=== PATIENT | female | born 1945 | race African-American/Black ===

== ENCOUNTER 2016-10-30 10:15 | Inpatient (IN) | payer OTHER ==
--- NOTE | 2016-10-30 10:57 | PDOC ---
History of Present Illness - General History Source: Patient Exam Limitations: No Limitations - History of Present Illness Initial Comments: 10/30/16 11:22 The patient is a 71 year old female, with a significant past medical history of HTN, who presents to the emergency department with SOB and chest tightness for 2 -3 days. She ranks her chest tightness a 2/10 in pain intensity. She denies experiencing these often or having these symptoms in the past. She notes the past day her symptoms have been getting worse with the development of a productive cough (bringing up yellow sputum) and often waking from sleep secondary to SOB. She notes her SOB is often made worse with any exertion or ambulation. She denies any change in her eating habits. She denies recent fever , chills, headache and dizziness. She denies recent nausea, vomit, diarrhea and constipation. Allergies: NKDA Social history: Current Smoker (1 pack a day for about 40 years). Denies drug and EtOH use. PCP: Dr. Valente <Jamaal Lane - Last Filed: 10/30/16 11:26> - General History Source: Patient Exam Limitations: No Limitations <Lashonda Lambert - Last Filed: 10/31/16 16:26> - General Chief Complaint: Shortness of Breath Stated Complaint: CHEST PAIN,TROUBLE BREATHING Time Seen by Provider: 10/30/16 10:55 Past History <Jamaal Lane - Last Filed: 10/30/16 11:26> - Past Medical History HTN: Yes - Psycho/Social/Smoking Cessation Hx Anxiety: No Suicidal Ideation: No Smoking History: Current every day smoker Have you smoked in the past 12 months: Yes Number of Cigarettes Smoked Daily: 10 Information on smoking cessation initiated: Yes 'Breaking Loose' booklet given: 10/30/16 Hx Alcohol Use: No Drug/Substance Use Hx: No Substance Use Type: None <Lashonda Lambert - Last Filed: 10/31/16 16:26> - Past Medical History Allergies/Adverse Reactions: Allergies Allergy/AdvReac Type Severity Reaction Status Date / Time No Known Allergies Allergy Verified 10/30/16 12:26 Home Medications: Ambulatory Orders NK [No Known Home Medication] 10/30/16 Review of Systems - Review of Systems Able to Perform ROS?: Yes Comments:: 10/30/16 11:02 GENERAL/CONSTITUTIONAL: No: fever, chills, weakness, loss of appetite. HEAD, EYES, EARS, NOSE AND THROAT: No: change in vision, ear pain, discharge, sore throat, throat swelling. CARDIOVASCULAR: Yes: chest pain, No: lightheadedness, palpitations, syncope RESPIRATORY: Yes: SOB and cough No: hemoptysis, stridor. GASTROINTESTINAL: No: nausea, vomiting, diarrhea, abdominal cramping, rectal bleeding, constipation. GENITOURINARY: No: dysuria, hematuria, frequency, urgency, flank pain. MUSCULOSKELETAL: No: back pain, neck pain, joint pain, muscle swelling or pain SKIN : No: lesions, pallor, rash or easy bruising. NEUROLOGIC: No: headache, vertigo, paresthesias, weakness ENDOCRINE: No: unexplained weight gain or loss HEMATOLOGIC/LYMPHATIC: No: anemia, easy bleeding, swelling nodes. <Jamaal Lane - Last Filed: 10/30/16 11:26> *Physical Exam - Vital Signs Last Vital Signs Temp Pulse Resp BP Pulse Ox 98.0 F 96 H 18 157/102 100 10/30/16 10:21 10/30/16 10:21 10/30/16 10:21 10/30/16 10:21 10/30/16 10:21 - Physical Exam Comments: 10/30/16 11:26 GENERAL: The patient is in no acute distress. Speaking in 5 word sentences. HEAD: Normal with no signs of trauma. EYES: PERRLA, EOMI, sclera anicteric, conjunctiva clear. ENT: Ears normal, nares patent, oropharynx clear without exudates. Moist mucous membranes. NECK: Normal range of motion, supple without lymphadenopathy, JVD, or masses. LUNGS: Inspiratory and expiratory wheezing in all lung [place]. No wheezes, and no crackles. HEART: Regular rate and rhythm, normal S1 and S2 without murmur, rub or gallop. ABDOMEN: Soft, nontender, normoactive bowel sounds. No guarding, no rebound. No masses palpable. EXTREMITIES: Normal range of motion, no edema. No clubbing or cyanosis. No erythema, or tenderness. NEUROLOGICAL: Cranial nerves II through XII grossly intact. Normal speech. No focal neurological deficits. MUSCULOSKELETAL: Back non-tender to palpation, no CVA tenderness SKIN: Warm, Dry, normal turgor, no rashes or lesions noted. <Jamaal Lane - Last Filed: 10/30/16 11:26> - Vital Signs Last Vital Signs Temp Pulse Resp BP Pulse Ox 98.0 F 96 H 18 157/102 100 10/30/16 10:21 10/30/16 10:21 10/30/16 10:21 10/30/16 10:21 10/30/16 10:21 <Lashonda Lambert - Last Filed: 10/31/16 16:26> Heart Score/ECG Review #1 ECG reviewed & interpreted by me at: 11:58 10/30/16 11:58 Twelve-lead EKG was performed and reviewed by me. There is normal sinus rhythm with a normal rate of 99 bpm. The axis is normal. The intervals are normal - pr: 140ms, QRS:74ms, QTc:454ms. There are no ST elevations or depressions. T wave flattening <Lashonda Lambert - Last Filed: 10/31/16 16:26> ED Treatment Course - LABORATORY CBC & Chemistry Diagram: 10/31/16 07:00 10/31/16 07:00 <Lashonda Lambert - Last Filed: 10/31/16 16:26> Medical Decision Making - Medical Decision Making 10/30/16 10:57 A portion of this note was documented by scribe services under my direction. I have reviewed the details of the note, within reason, and agree with the documentation with the following case summary and management plan written by me. Nursing documentation reviewed and incorporated into medical decision making 10/30/16 13:42 71 yo F h/o HTN presenting to the ER with a complaint of cough and shortness of breath No fevers or chills that she notes She has exertional dyspnea and shortness of breath at rest Pt uses tobacco - more than 1 ppd for 40 years No recent travel No chest pain On examination: Inspiratory and Expiratory wheezing in all lung [place] No abd tenderness No lower extremity edema Will do labs Will do cxr Given Solumedrol (pt history suggestive of COPD) Given DuoNebs Cxr ? CHF, lytic lesion Case reviewed with Dr. Daugherty Will admit Will add on BNP Will add Azithromycin Clinical impression: cough, ?CHF vs COPD exacerbation, ? lytic lesion Laboratory Tests 10/30/16 10/30/16 10:58 10:58 WBC 8.7 Hgb 12.5 Hct 39.3 Plt Count 226 Neutrophils % 71.8 Lymphocytes % 16.7 BUN 9 Creatinine 0.7 Creatine Kinase 467 H CK-MB (CK-2) 5.748 H Troponin I < 0.02 B-Natriuretic Peptide 595.94 H <Lashonda Lambert - Last Filed: 10/31/16 16:26> *DC/Admit/Observation/Transfer - Attestations Scribe Attestion: 10/30/16 10:59 Documentation prepared by Jamaal Lane, acting as biomedical equipment specialist for Lashonda Lambert MD. <Jamaal Lane - Last Filed: 10/30/16 11:26> - Discharge Dispostion Admit: Yes <Lashonda Lambert - Last Filed: 10/31/16 16:26> Diagnosis at time of Disposition: Cough, COPD exacerbation - Discharge Dispostion Condition at time of disposition: Stable
[2016-10-30] MEDS ORDERED: methylPREDNISolone NA SUCC 125 MG/2 ML VIAL IVPB ONE (11:25)
[2016-10-30] MEDS ORDERED: ALBUTEROL SO4 2.5/IPRATROPIUM 0.5 INH SOL 3 ML VIAL.NEB. NEB ONE ×2 (11:25)
[2016-10-30 12:02] LABS: BASOPHIL 0.9 % (0-2.0); EOSINOPHIL 1.4 % (0-4.5); MCH 28.7 pg (25.7-33.7); MCHC 31.7 g/dl (32.0-36.0); MEAN CELL VOLUME 90.5 fl (80-96); MEAN PLT VOLUME 9.6 fl (7.5-11.1); NEUTROPHILS 71.8 % (42.8-82.8); PLATELET COUNT 226 K/MM3 (134-434); RDW 15.9 % (11.6-15.6); WHITE BLOOD COUNT 8.7 K/mm3 (4.0-10.0)
[2016-10-30 12:15] LABS: INR 1.08 (0.82-1.09); PROTHROMBIN TIME (PATIENT) 11.9 SEC (9.98-11.88)
[2016-10-30 12:22] LABS: ANION GAP 11 (8-16); BILIRUBIN,TOTAL 0.7 mg/dL (0.2-1.0); CALCIUM 9.4 mg/dL (8.5-10.1); CO2 22 mmol/L (21-32); CREATININE 0.7 mg/dL (0.55-1.02); GLUCOSE,RANDOM 93 mg/dL (74-106); MAGNESIUM 1.7 mg/dL (1.8-2.4); SGPT/ALT 30 U/L (12-78); TOT PROT 7.9 g/dl (6.4-8.2)
[2016-10-30 12:25] LABS: ALK PHOS 72 U/L (45-117); TROPONIN I < 0.02 ng/ml (0.00-0.05)
[2016-10-30 12:26] LABS: SGOT/AST 51 U/L (15-37)
[2016-10-30] MEDS ORDERED: AZITHROMYCIN IVPB 500 MG in DEXTROSE 5%-WATER - 250 ML IVPB ONE (13:39)
[2016-10-30] MEDS ORDERED: AZITHROMYCIN IVPB 250 ML IVPB ONE (13:57)
--- NOTE | 2016-10-30 15:48 | EKG ---
Test Reason : Blood Pressure : / mmHG Vent. Rate : 099 BPM Atrial Rate : 099 BPM P-R Int : 140 ms QRS Dur : 074 ms QT Int : 354 ms P-R-T Axes : 000 -13 254 degrees QTc Int : 454 ms POOR DATA QUALITY, INTERPRETATION MAY BE ADVERSELY AFFECTED NORMAL SINUS RHYTHM NONSPECIFIC T WAVE ABNORMALITY ABNORMAL ECG Confirmed by GAYLA JUAREZ MD ([id number]) on 10/30/2016 3:48:03 PM Referred By: Confirmed By:GAYLA JUAREZ MD
[2016-10-30] MEDS ORDERED: FUROSEMIDE 40 MG/4 ML INJECTABLE VIAL IVPB ONE (17:05)
[2016-10-30] MEDS ORDERED: PNEUMOC 13-VAL CONJ-DIP CRM/PF 0.5 ML DISP.SYRIN IM ONE (17:16)
--- NOTE | 2016-10-30 17:27 | HP ---
CHIEF COMPLAINT: SOB and chest tightness for 2 days PCP: Dr. Valente HISTORY OF PRESENT ILLNESS: 71 y/o F w/PMH of HTN, current smoker presented to ER with SOB and chest tightness for 2 days, associated with cough and clear sputum sputum production. Chest tightness rated as a 2/10. Came into ER today because she hasn't been able to sleep from coughing and SOB over last two nights. Cough is worse when laying flat. Requires 2 pillows to sleep. Has had exertional dyspnea from some time now but has gotten worse in last 2 days. She is unable to walk 10-15 ft now w/o getting SOB. SOB is relieved with rest. Pt does not follow with doctors. Last time she saw a physician was Dr. Valente approximately 4-5 years ago. Saw account installer before then and had echo done but does not know the results or name of doctor. She was started on hyzaar at the time but did not take the meds. Denies N/V/F/C, abd pain. Pt also c/o decreased feeling in legs, drinks lots of soda and water, has right hand cramping and leg cramping which takes 2 tablets of potassium daily (which she feels helps). Denies any sick contacts. ER course was notable for: (1) solumedrol, ekg, cxr, azithromycin (2) (3) Recent Travel: denies PAST MEDICAL HISTORY: htn PAST SURGICAL HISTORY: back surgery 2010 Social History: Smokin ppd for 40 years Alcohol: denies Drugs: denies Family History: Father became cachetic and passed (does not know cause), Mother -[place]. Aunt, cousins diabetes Allergies No Known Allergies Allergy (Verified 10/30/16 12:26) HOME MEDICATIONS: Home Medications Medication Instructions Recorded NK [No Known Home Medication] 10/30/16 REVIEW OF SYSTEMS CONSTITUTIONAL: Absent: fever, chills, diaphoresis, generalized weakness, malaise, loss of appetite, weight change HEENT: Absent: rhinorrhea, nasal congestion, throat pain, throat swelling, difficulty swallowing, mouth swelling, ear pain, eye pain, visual changes CARDIOVASCULAR: Absent: chest pain, syncope, palpitations, irregular heart rate, lightheadedness , peripheral edema RESPIRATORY: SOB, cough, dyspnea with exertion Absent: orthopnea, wheezing, stridor, hemoptysis GASTROINTESTINAL: Absent: abdominal pain, abdominal distension, nausea, vomiting, diarrhea, constipation, melena, hematochezia GENITOURINARY: Absent: dysuria, frequency, urgency, hesitancy, hematuria, flank pain, genital pain MUSCULOSKELETAL: Absent: myalgia, arthralgia, joint swelling, back pain, neck pain SKIN: Absent: rash, itching, pallor HEMATOLOGIC/IMMUNOLOGIC: Absent: easy bleeding, easy bruising, lymphadenopathy, frequent infections ENDOCRINE: Absent: unexplained weight gain, unexplained weight loss, heat intolerance, cold intolerance NEUROLOGIC: Absent: headache, focal weakness or paresthesias, dizziness, unsteady gait, seizure, mental status changes, bladder or bowel incontinence PSYCHIATRIC: Absent: anxiety, depression, suicidal or homicidal ideation, hallucinations. PHYSICAL EXAMINATION Vital Signs Temperature 98.0 F 10/30/16 10:21 Pulse Rate 88 10/30/16 16:59 Respiratory Rate 20 10/30/16 16:59 Blood Pressure 157/90 10/30/16 16:59 O2 Sat by Pulse Oximetry (%) 96 10/30/16 16:59 GENERAL: Awake, alert, and fully oriented, in no acute distress. HEAD: Normal with no signs of trauma. EYES: Pupils equal, round and reactive to light, extraocular movements intact, sclera anicteric, conjunctiva clear. No lid lag. EARS, NOSE, THROAT: Ears normal, nares patent, oropharynx clear without exudates. Moist mucous membranes. Mallampati score 4. NECK: Normal range of motion, supple without lymphadenopathy, JVD, or masses. LUNGS: B/L wheezing. No crackles. HEART: Regular rate and rhythm, normal S1 and S2 without murmur, rub or gallop. ABDOMEN: Soft, nontender, obese, not distended, normoactive bowel sounds, no guarding, no rebound, no masses. No hepatomegaly or splenomegaly. LOWER EXTREMITIES: 2+ pulses, warm, well-perfused. Chronic venous stasis changes on B/L LE. Trace B/L LE edema. NEUROLOGICAL: Normal speech. Normal gait. PSYCHIATRIC: Cooperative. Good eye contact. Appropriate mood and affect. SKIN: Warm, dry, normal turgor, no rashes or lesions noted. CBCD WBC 8.7 K/mm3 (4.0-10.0) 10/30/16 10:58 RBC 4.34 M/mm3 (3.60-5.2) 10/30/16 10:58 Hgb 12.5 GM/dL (10.7-15.3) 10/30/16 10:58 Hct 39.3 % (32.4-45.2) 10/30/16 10:58 MCV 90.5 fl (80-96) 10/30/16 10:58 MCHC 31.7 g/dl (32.0-36.0) L 10/30/16 10:58 RDW 15.9 % (11.6-15.6) H 10/30/16 10:58 Plt Count 226 K/MM3 (134-434) 10/30/16 10:58 MPV 9.6 fl (7.5-11.1) 10/30/16 10:58 CMP Sodium 136 mmol/L (136-145) 10/30/16 10:58 Potassium 5.5 mmol/L (3.5-5.1) H 10/30/16 10:58 Chloride 103 mmol/L (98-107) 10/30/16 10:58 Carbon Dioxide 22 mmol/L (21-32) 10/30/16 10:58 Anion Gap 11 (8-16) 10/30/16 10:58 BUN 9 mg/dL (7-18) 10/30/16 10:58 Creatinine 0.7 mg/dL (0.55-1.02) 10/30/16 10:58 Creat Clearance w eGFR > 60 (>60) 10/30/16 10:58 Random Glucose 93 mg/dL (74-106) 10/30/16 10:58 Calcium 9.4 mg/dL (8.5-10.1) 10/30/16 10:58 Total Bilirubin 0.7 mg/dL (0.2-1.0) 10/30/16 10:58 AST 51 U/L (15-37) H 10/30/16 10:58 ALT 30 U/L (12-78) 10/30/16 10:58 Alkaline Phosphatase 72 U/L (45-117) 10/30/16 10:58 Total Protein 7.9 g/dl (6.4-8.2) 10/30/16 10:58 Albumin 4.0 g/dl (3.4-5.0) 10/30/16 10:58 CARDIAC ENZYMES Creatine Kinase 467 IU/L (26-192) H 10/30/16 10:58 Troponin I < 0.02 ng/ml (0.00-0.05) 10/30/16 10:58 Laboratory Tests 10/30/16 10:58 B-Natriuretic Peptide 595.94 H Imaging CXR 10/30/16: mild congestive changes. lytic lesion in the left proximal humerus with thinning of the adjacent medial cortex. ASSESSMENT/PLAN: 71 y/o F with PMH of HTN and current smoker presented to ER with SOB and chest tightness for 2 days. Admitted for SOB secondary to CHF vs COPD exacerbation vs ACS. -SOB secondary to CHF vs COPD exacerbation vs ACS -CHF - BNP: 595, trace LE edema, CXR: mild congestive changes, b/l angles blunted, possible underlying CHF not acute most likely -one dose iv lasix 40 mg ordered; cxr in am; echo -COPD - current smoker, at risk for copd -solumedrol 40 mg iv q8h, azithromycin 250mg iv qd (day), duonebs qidr -ACS - CK and CKMB elevated, trops negative - low suspicion for ACS currently -f/u Echo, TSH, Trend trops, lipid panel, A1C -f/u Bcx -Transaminitis -possibly secondary to CHF -monitor LFTs -HTN -will start back on losartan/hctz at lowest dose (50/12.5) daily -monitor BP -Lytic lesion on L humerus -Seen on images in past -will need to f/u as outpatient -R hand pain/cramping -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 -Hypomagnesemia -MgOx 800 mg bid -Monitor lytes, Mg -Diet: Sodium controlled, diabetic diet -DVT ppx -Heparin sq tid -Dispo: Monitor on floors. Problem List - Problem (1) COPD exacerbation Code(s): J44.1 - CHRONIC OBSTRUCTIVE PULMONARY DISEASE W (ACUTE) EXACERBATION (2) Cough Code(s): R05 - COUGH (3) CHF (congestive heart failure) Code(s): I50.9 - HEART FAILURE, UNSPECIFIED (4) ACS (acute coronary syndrome) Code(s): I24.9 - ACUTE ISCHEMIC HEART DISEASE, UNSPECIFIED (5) Transaminitis Code(s): R74.0 - NONSPEC ELEV OF LEVELS OF TRANSAMNS & LACTIC ACID DEHYDRGNSE (6) Hyperkalemia Code(s): E87.5 - HYPERKALEMIA (7) Hypomagnesemia Code(s): E83.42 - HYPOMAGNESEMIA (8) Obesity Code(s): E66.9 - OBESITY, UNSPECIFIED Visit type - Emergency Visit Emergency Visit: Yes ED Registration Date: 10/30/16 Care time: The patient presented to the Emergency Department on the above date and was hospitalized for further evaluation of their emergent condition. - New Patient This patient is new to me today: Yes Date on this admission: 10/30/16 - Critical Care Critical Care patient: No
[2016-10-30 17:35] VITALS: BMI 41.1
[2016-10-30] MEDS: NICOTINE 21 MG/24 HOURS TOPICAL PATCH TD SCH (17:46)
[2016-10-30] MEDS: ALBUTEROL SO4 2.5/IPRATROPIUM 0.5 INH SOL 3 ML VIAL.NEB. NEB SCH (17:46)
[2016-10-30] MEDS: methylPREDNISolone NA SUCC 40 MG/1 ML VIAL IVPB SCH (18:15)
--- NOTE | 2016-10-30 18:27 | PN ---
Teaching Attending Note Name of Resident: Dexter Whipple ATTENDING PHYSICIAN STATEMENT I saw and evaluated the patient. I reviewed the resident's note and discussed the case with the resident. I agree with the resident's findings and plan as documented. SUBJECTIVE: This is a 71-year-old woman with a history of HTN who presented to the ER complaining of chest tightness and shortness of breath with cough for the last 2 days. She has had shortness of breath with exertion for some time and it has been worsening. She denies fever, chills, urinary frequency, nocturia , orthopnea, PND, leg edema. OBJECTIVE: Vital Signs Period Temp Pulse Resp BP Sys/Ortiz Pulse Ox Last 24 Hr 98.0 F-98.6 F 88-108 18-24 157-174/90-102 96-100 HEART: S1 S2, RRR LUNGS: Bilateral wheezes ABDOMEN: Obese, soft, non-tender, normal BS EXTREMITIES: Trace edema ASSESSMENT AND PLAN: This is a 71-year-old woman with a history of HTN who comes to the ER today with worsening shortness of breath. 1. Acute exacerbation of COPD - SoluMedrol, DuoNeb, oxygen 2. Possible acute diastolic heart failure - Lasix IV x1 - Echocardiogram 3. Possible acute coronary syndrome - Serial troponins - Echocardiogram 4. Hypertension - Has not been taking medications (Was supposed to be on Hyzaar) - Restart Hyzaar and monitor BP 5. Lytic lesion of proximal left humerus - Outpatient evaluation
[2016-10-30] MEDS ORDERED: amLODIPine BESYLATE 5 MG TABLET (FP) PO ONE (20:59)
[2016-10-30] MEDS ORDERED: diphenhydrAMINE HCL 25 MG CAPSULE (FP) PO ONE (21:01)
[2016-10-30] MEDS: MAGNESIUM OXIDE 400 MG TABLET (FP) PO SCH (21:43)
[2016-10-31] MEDS: ALBUTEROL SO4 2.5/IPRATROPIUM 0.5 INH SOL 3 ML VIAL.NEB. NEB SCH ×2 (00:09→06:29)
[2016-10-31] MEDS: methylPREDNISolone NA SUCC 40 MG/1 ML VIAL IVPB SCH ×3 (02:13→21:01)
[2016-10-31 08:41] LABS: MCH 28.9 pg (25.7-33.7); MCHC 31.9 g/dl (32.0-36.0); MEAN CELL VOLUME 90.5 fl (80-96); PLATELET COUNT 249 K/MM3 (134-434); RDW 15.7 % (11.6-15.6); WHITE BLOOD COUNT 8.2 K/mm3 (4.0-10.0)
[2016-10-31 09:11] LABS: ALBUMIN 4.1 g/dl (3.4-5.0); ANION GAP 11 (8-16); BILIRUBIN,TOTAL 0.4 mg/dL (0.2-1.0); CALCIUM 9.7 mg/dL (8.5-10.1); CHOLESTEROL 142 mg/dL (50-200); CO2 25 mmol/L (21-32); CREATININE 0.7 mg/dL (0.55-1.02); GLUCOSE,RANDOM 142 mg/dL (74-106); LDL CHOLESTEROL (ONLY SJRH) 53 mg/dL (5-100); MAGNESIUM 2.1 mg/dL (1.8-2.4); PHOSPHOROUS 4.1 mg/dL (2.5-4.9); SGOT/AST 14 U/L (15-37); SGPT/ALT 26 U/L (12-78)
[2016-10-31 09:17] LABS: ALK PHOS 77 U/L (45-117); THYROID STIMULATING HORMONE 0.33 uIU/ml (0.358-3.74); TROPONIN I < 0.02 ng/ml (0.00-0.05)
--- NOTE | 2016-10-31 10:02 | PN ---
Progress Note (short form) - Note Progress Note: c/o productive cough of clear sputum. states her breathing has improved but feels dyspnic on exertion. she states she does not have the ability to walk far due to back pain which is assoc with SOB. but denies CP at that time. she states she has chronic cough which is worse at night but not assoc with laying flat. has intermittent edema limited to the feet and intermittent leg and hand cramps. she states she had cardiac workup in 2010 but does not recall what was done but thinks the results were "fine". she thinks she was told something about her thyroid but was told she didnt have to "worry about it". stopped taking all her medications except potassium supplements awhile ago on her own. has not seen PMD (Dr Valente) in several years. also had difficulty sleeping last night. denies CP, palpitations, skin changes, hair loss, orthopnea, PND, leg edema, rashes, N/V/C/D Current Medications Generic Name Dose Route Start Last Admin Trade Name Christophe PRN Reason Stop Dose Admin Albuterol/Ipratropium 1 amp 10/30/16 18:00 10/31/16 06:29 Duoneb - NEB 1 amp QIDR SORAYA Administration HCTZ/Losartan Potassium 1 tab 10/31/16 10:00 Hyzaar - PO DAILY SORAYA Azithromycin 250 mg/ Dextrose 250 mls @ 250 mls/hr 10/31/16 10:00 IVPB DAILY SORAYA Magnesium Oxide 800 mg 10/30/16 22:00 10/30/16 21:43 Mag-Ox - PO 800 mg BID SORAYA Administration Methylprednisolone Sodium Succinate 40 mg 10/30/16 18:00 10/31/16 02:13 Solu-Medrol - IVPB 40 mg Q8H-IV SORAYA Administration Nicotine 21 mg 10/30/16 17:45 10/30/16 17:46 Nicoderm Patch - TD Not Given DAILY SORAYA Last Vital Signs Temp Pulse Resp BP Pulse Ox 98.3 F 103 H 22 147/104 97 10/31/16 06:00 10/31/16 06:00 10/31/16 06:00 10/31/16 06:00 10/30/16 21:00 General NAD, pressured speech HEENT no thyroid nodules appreciated, CV S1 S2 RRR no murmur/rub/gallop no JVD Lungs mild expiratory wheezing. no rales or crackles. poor inspiratory effort abdomen soft NT/ND obese Extremities no pedal edema CBCD WBC 8.2 K/mm3 (4.0-10.0) 10/31/16 07:00 RBC 4.33 M/mm3 (3.60-5.2) 10/31/16 07:00 Hgb 12.5 GM/dL (10.7-15.3) 10/31/16 07:00 Hct 39.2 % (32.4-45.2) 10/31/16 07:00 MCV 90.5 fl (80-96) 10/31/16 07:00 MCHC 31.9 g/dl (32.0-36.0) L 10/31/16 07:00 RDW 15.7 % (11.6-15.6) H 10/31/16 07:00 Plt Count 249 K/MM3 (134-434) 10/31/16 07:00 MPV 10.0 fl (7.5-11.1) 10/31/16 07:00 CMP Sodium 137 mmol/L (136-145) 10/31/16 07:00 Potassium 4.4 mmol/L (3.5-5.1) 10/31/16 07:00 Chloride 101 mmol/L (98-107) 10/31/16 07:00 Carbon Dioxide 25 mmol/L (21-32) 10/31/16 07:00 Anion Gap 11 (8-16) 10/31/16 07:00 BUN 22 mg/dL (7-18) H D 10/31/16 07:00 Creatinine 0.7 mg/dL (0.55-1.02) 10/31/16 07:00 Creat Clearance w eGFR > 60 (>60) 10/31/16 07:00 Random Glucose 142 mg/dL (74-106) H D 10/31/16 07:00 Calcium 9.7 mg/dL (8.5-10.1) 10/31/16 07:00 Total Bilirubin 0.4 mg/dL (0.2-1.0) D 10/31/16 07:00 AST 14 U/L (15-37) L D 10/31/16 07:00 ALT 26 U/L (12-78) 10/31/16 07:00 Alkaline Phosphatase 77 U/L (45-117) 10/31/16 07:00 Total Protein 8.0 g/dl (6.4-8.2) 10/31/16 07:00 Albumin 4.1 g/dl (3.4-5.0) 10/31/16 07:00 CARDIAC ENZYMES Creatine Kinase 406 IU/L (26-192) H 10/31/16 07:00 Troponin I < 0.02 ng/ml (0.00-0.05) 10/31/16 07:00 A/P 71 yo F with PMH HTN and chronic smoker presented to the ER and was admitted for further evaluation of their emergent condition 1. Acute COPD exacerbation- no formally diangosed but likely with smoking hx. has vascular congestion on CXR and given lasix in the ER. however pt does not clinically appear to be volume overloaded and with normal BNP. will hold lasix at this time. improved on steroids. Will decrease solumedrol to BID dosing. Azithromycin day 2. will switch nebs to prn from standing. 2. low TSH- had low TSH in 2010, also thyroid u/s showed multiple nodules and recommended FNA at that time however was never done. check T3/T4, thyroid u/s. will consider starting methimazole. 3. Hyperkalemia- likely due to supplementation. now resolved 4. Hypomagnesemia- resolved. d/c standing magnesium 5. HTN- not on medications at home. above goal. re-started hyzaar. monitor 6. Morbid obesity- counseled on weight loss and exercise. not interested at bariatric surgery at this time 7. Continuous nicotine dependence- not interested in tobacco cessation at this time. counseled on risks of tobacco. patch offered 8. insomnia- ambien qhs. explained will not be discharged on this medication. verbalized understanding 9. DVT ppx- EAM Visit type - Emergency Visit Emergency Visit: Yes ED Registration Date: 10/30/16 Care time: The patient presented to the Emergency Department on the above date and was hospitalized for further evaluation of their emergent condition. - New Patient This patient is new to me today: Yes Date on this admission: 10/31/16 - Critical Care Critical Care patient: No - Discharge Referral Referred to [facility] Med P.C[facility] No
[2016-10-31] MEDS ORDERED: ZOLPIDEM TARTRATE 5 MG TABLET PO PRN (10:25)
[2016-10-31] MEDS ORDERED: PT OWN MED DRAWER 7, Y5N ONE (10:35)
[2016-10-31] MEDS: AZITHROMYCIN IVPB 250 MG in DEXTROSE 5%-WATER - 250 ML IVPB SCH (10:37)
[2016-10-31] MEDS: LOSARTAN 50MG/HCTZ 12.5MG 1 TAB (FP) PO SCH (10:37)
[2016-10-31] MEDS: NICOTINE 21 MG/24 HOURS TOPICAL PATCH TD SCH (10:37)
[2016-10-31] MEDS: ALBUTEROL SO4 2.5/IPRATROPIUM 0.5 INH SOL 3 ML VIAL.NEB. NEB PRN ×3 (11:22→22:35)
[2016-10-31 11:48] LABS: T3 UPTAKE 30.4 % (30-39); THYROXINE (T4) 8.9 ug/dl (4.8-13.9)
[2016-10-31] MEDS: MAGNESIUM OXIDE 400 MG TABLET (FP) PO SCH (12:22)
[2016-11-01 06:29] VITALS: TEMP 98.5
[2016-11-01] MEDS: ALBUTEROL SO4 2.5/IPRATROPIUM 0.5 INH SOL 3 ML VIAL.NEB. NEB PRN ×2 (06:50→10:30)
[2016-11-01 09:53] VITALS: BP 134/100
[2016-11-01] MEDS ORDERED: AZITHROMYCIN 250 MG TABLET (FP) PO ONE (10:01)
--- NOTE | 2016-11-01 10:26 | DS ---
Addendum entered and electronically signed by Edwige Chery RES 11/04/16 14 :08: Ambulatory Orders Albuterol Sulfate Inhaler - [Ventolin HFA Inhaler -] 1 puff IH DAILY PRN #1 inhaler 11/01/16 Azithromycin 250 mg PO DAILY #2 tablet 11/01/16 Losartan 50Mg/Hctz 12.5MG [Hyzaar -] 1 tab PO DAILY #30 tablet 11/01/16 Methylprednisolone [Medrol Dose Abdelrahman] 4 mg PO ASDIR #21 tablet 11/01/16 Original Note: Physical Exam: SUBJECTIVE: Patient seen and examined. Shortness of breath and cough has improved. Feeling much better. Denies fever, chills, chest pain, sputum production, pain, leg swelling. OBJECTIVE: Vital Signs Period Temp Pulse Resp BP Sys/Ortiz Pulse Ox Last 24 Hr 97.9 F-98.6 F 100-112 14-22 134-160/78-100 90-94 PHYSICAL EXAM GENERAL: The patient is awake, alert, and fully oriented, in no acute distress. HEAD: Normal with no signs of trauma. EYES: PERRL, extraocular movements intact, sclera anicteric, conjunctiva clear. ENT: Ears normal, nares patent, oropharynx clear without exudates, moist mucous membranes. NECK: Trachea midline, full range of motion, supple. LUNGS: Breath sounds equal decreased, bilateral wheezes throughout all lung [place], no crackles, no accessory muscle use. HEART: Regular rate and rhythm, S1, S2 without murmur, rub or gallop. ABDOMEN: Soft, nontender, nondistended, normoactive bowel sounds, no guarding, no rebound, no hepatosplenomegaly, no masses. EXTREMITIES: 2+ pulses, warm, well-perfused, no edema. NEUROLOGICAL: Cranial nerves II through XII grossly intact. Normal speech, gait not observed. PSYCH: Normal mood, normal affect. SKIN: Warm, dry, normal turgor, no rashes or lesions noted. LABS Laboratory Results - last 24 hr 10/31/16 10/31/16 07:00 07:00 Hemoglobin A1c % 5.8 Resin T3 Uptake 30.4 HOSPITAL COURSE: Date of Admission:10/30/16 Date of Discharge: 11/01/16 71 year old female, chronic smoker, presents to the hospital with shortness of breath and chest tightness, admitted for acute exacerbation of COPD. She was managed on short course of antibiotics and IV steroids. Patient condition greatly improved. She was sent home on medrol dose pack, two more days of azithromycin 250mg po and an albuterol inhaler. She was counseled on smoking cessation, for which she has refused. O2 on room air was within normal limits. Patient has been advised to get an echocardiogram as an outpatient due to some initial query of congestive heart failure. She did have some small bilateral crackles on presentation, with some vascularization of vessels on initial chest xray, BNP 600s. We ruled out CHF due to further clinical presentation and patient improvement with current treatment, although we suggest further evaluation. While in hospital, TSH was low 0.33. past records indicate even lower TSH. Past workup included a thyroid ultrasound that showed multiple nodules, fine needle biopsy was recommend. Patient did not get this done. Recommend further evaluation with primary. Minutes to complete discharge: 40 Discharge Summary Reason For Visit: OBSTR CHRONIC BRONCHITIS Current Active Problems COPD exacerbation (Acute) Cough (Acute) Obesity (Chronic) Condition: Improved - Instructions Diet, Activity, Other Instructions: Ms. Velez, you have been treated in the hospital for an acute exacerbation of COPD. We would like you to continue taking two more days of the antibiotic prescribed that you will start tomorrow. We would also like to take a steroid dose pack that you will start tomorrow as well. Smoking cessation would greatly improve your condition as well. We spoke about getting an echocardiogram, to further asses you heart, for which you can do as an outpatient. Also the need for a thyroid ultrasound to follow up with your recent thyroid levels. Please discuss these issues with your primary physician with in one week. If you have any worsening of symptoms, increasing shortness of breath , chest pain, please return to the emergency room. Disposition: HOME - Home Medications Comprehensive Discharge Medication List: Ambulatory Orders NK [No Known Home Medication] 10/30/16 This patient is new to me today: Yes Date on this admission: 11/01/16 Emergency Visit: No Critical Care patient: No - Discharge Referral Referred to [facility] Med P.C.: No
[2016-11-01] MEDS: methylPREDNISolone NA SUCC 40 MG/1 ML VIAL IVPB SCH (10:42)
[2016-11-01] MEDS: LOSARTAN 50MG/HCTZ 12.5MG 1 TAB (FP) PO SCH (10:42)
[2016-11-01] MEDS: NICOTINE 21 MG/24 HOURS TOPICAL PATCH TD SCH (10:42)
[2016-11-01] MEDS: AZITHROMYCIN IVPB 250 MG in DEXTROSE 5%-WATER - 250 ML IVPB SCH (10:45)
--- NOTE | 2016-11-01 11:12 | PN ---
Teaching Attending Note Name of Resident: Edwige Chery ATTENDING PHYSICIAN STATEMENT I saw and evaluated the patient. I reviewed the resident's note and discussed the case with the resident. I agree with the resident's findings and plan as documented. SUBJECTIVE:currently asymptomatic. states cough has significantly improved. requesting to go home. denies CP, SOB,fever, chills, N/V/C/D OBJECTIVE: Last Vital Signs Temp Pulse Resp BP Pulse Ox 98.5 F 100 H 20 134/100 94 L 11/01/16 06:00 11/01/16 09:45 11/01/16 09:45 11/01/16 09:45 10/31/16 21:00 General NAD CV S1 S2 RRR no murmur/rub/gallop Lungs minimal expiratory wheezing, no crackles extremities no pedal edema ASSESSMENT AND PLAN: 11 yo F with PMH HTN and chronic smoker presented to the ER and was admitted for further evaluation of their emergent condition 1. Acute COPD exacerbation-clinically improved. used neb once in past 24 H. will give solumedrol 40mg IV today and then d/c on medrol dose pack to start tomorrow. Azithromycin day 3, will give to complete 5 day course. informed pt she would benefit from echo done as outpatient to assess overall performance. albuterol inhaler prn. 2. low TSH- had low TSH in 2010, unable to obtain thyroid u/s as not done as inpatient. encouraged pt to have done as outpatient, also will need repeat TSH. will hold on starting medications at this time as T3/T4 are normal. (T4 8.9) 3. HTN-improved. started on hyzaar. will continue for now. counseled on low salt diet. will likely require further titration to optimize blood pressure control 4. Morbid obesity- counseled on weight loss and exercise. not interested at bariatric surgery at this time 5. Continuous nicotine dependence- not interested in tobacco cessation at this time. counseled on risks of tobacco. patch offered 6. DVT ppx- EAM 7. d/c home. explained in detail plan and importance of medication and diet compliance. informed her need to follow up with PMD. states she has appointment for 2 days from now. explained to bring in medication changes and need for echo and u/s
[2016-11-01 11:26] VITALS: PULSE 88
== END 2016-11-01 12:28 | disposition home or self-care (01) | DRG 191 ==
LOC: JER 10:15 → JERBED 13:49 → J5S 16:45
PROVIDERS: ADMIT Internal Medicine; ATTEND Internal Medicine
DX: J44.1 Chronic obstructive pulmonary disease with (acute) exacerbation (principal); Z68.41 Body mass index [BMI] 40.0-44.9, adult; F17.210 Nicotine dependence, cigarettes, uncomplicated; E66.01 Morbid (severe) obesity due to excess calories; I10 Essential (primary) hypertension; E87.5 Hyperkalemia; E83.42 Hypomagnesemia; G47.00 Insomnia, unspecified
CPT/HCPCS: 36415; 71010-TC; 80053; 80061; 82550; 82553; 83036; 83721; 83735; 83880; 84100; 84436; 84443; 84479; 84484; 85025; 85027; 85610; 87040; 87077; 90670; 93005; 93010; 94640; 99283-25

== ENCOUNTER 2017-02-01 08:18 | Emergency (ER) | payer OTHER ==
[2017-02-01 08:29] VITALS: TEMP 97.5; BMI 41.4
[2017-02-01 09:38] LABS: BASOPHIL 0.3 % (0-2.0); EOSINOPHIL 0.9 % (0-4.5); MCH 29.5 pg (25.7-33.7); MCHC 32.5 g/dl (32.0-36.0); MEAN CELL VOLUME 90.6 fl (80-96); MEAN PLT VOLUME 9.1 fl (7.5-11.1); NEUTROPHILS 66.5 % (42.8-82.8); PLATELET COUNT 312 K/MM3 (134-434); RDW 15.3 % (11.6-15.6); WHITE BLOOD COUNT 9.3 K/mm3 (4.0-10.0)
[2017-02-01 10:02] LABS: ALBUMIN 4.1 g/dl (3.4-5.0); BILIRUBIN,TOTAL 0.7 mg/dL (0.2-1.0); CALCIUM 9.8 mg/dL (8.5-10.1); COCKROFT - GAULT 80.8775; CREATININE 1.1 mg/dL (0.55-1.02); TOT PROT 8.6 g/dl (6.4-8.2)
--- NOTE | 2017-02-01 11:02 | PDOC ---
History of Present Illness - History of Present Illness Initial Comments: 02/01/17 11:12 Patient is a 71 year old female with significant medical hx of HTN who is presenting to the ED with left sided abdominal pain for one week. Patient complains of left sided pain, to her mid left abdomen and LLQ, that only occurs after eating and drinking. She reports that laying down relieves her pain. The patient endorses some constipation, which is normal for her, but notes that it has been worse the past week. The patient took a laxative one week ago which was prompted her last bowel movement. Denies any fevers, chills, nausea, vomiting, diarrhea, dysuria, or frequency. Allergies: NKDA Surgical Hx: Tonsillectomy, hysterectomy, back sx Social Hx: Current every day tobacco smoker, pack per day, for 40 years. Denies alcohol use. PMD: Elizabeth Valente MD <Latonya Omer - Last Filed: 02/01/17 16:50> <Christy Ackerman - Last Filed: 02/01/17 16:55> - General Chief Complaint: Pain Stated Complaint: ABD PAIN Past History <Latonya Omer - Last Filed: 02/01/17 16:50> - Past Medical History Anemia: No Asthma: No Cancer: No Cardiac Disorders: No CVA: No COPD: No CHF: No Dementia: No Diabetes: No GI Disorders: No Disorders: No HTN: Yes Hypercholesterolemia: No Liver Disease: No Seizures: No Thyroid Disease: No - Surgical History Abdominal Surgery: No Appendectomy: No Cardiac Surgery: No Cholecystectomy: No Lung Surgery: No Neurologic Surgery: No Orthopedic Surgery: Yes (lower back surgery 2010) - Psycho/Social/Smoking Cessation Hx Anxiety: No Suicidal Ideation: No Smoking History: Current every day smoker Have you smoked in the past 12 months: Yes Number of Cigarettes Smoked Daily: 30 Information on smoking cessation initiated: Yes 'Breaking Loose' booklet given: 02/01/17 Hx Alcohol Use: No Drug/Substance Use Hx: No Substance Use Type: None <Christy Ackerman - Last Filed: 02/01/17 16:55> - Past Medical History Allergies/Adverse Reactions: Allergies Allergy/AdvReac Type Severity Reaction Status Date / Time No Known Allergies Allergy Verified 02/01/17 08:29 Home Medications: Ambulatory Orders Losartan 50Mg/Hctz 12.5MG [Hyzaar -] 1 tab PO DAILY #30 tablet 11/01/16 Sulfamethoxazole/Trimethoprim [Bactrim Ds Tablet] 1 each PO BID #14 tablet 02/01 Review of Systems - Review of Systems Comments:: 02/01/17 11:13 CONSTITUTIONAL: Absent: fever, chills, diaphoresis, generalized weakness, malaise, loss of appetite HEENT: Absent: rhinorrhea, nasal congestion, throat pain, throat swelling, difficulty swallowing, mouth swelling, ear pain, eye pain, visual changes CARDIOVASCULAR: Absent: chest pain, syncope, palpitations, irregular heart rate, lightheadedness , peripheral edema RESPIRATORY: Absent: cough, shortness of breath, dyspnea with exertion, orthopnea, wheezing, stridor, hemoptysis GASTROINTESTINAL: Present: left sided abdominal pain, constipation Absent: abdominal distension, nausea, vomiting, diarrhea, melena, hematochezia GENITOURINARY: Absent: dysuria, frequency, urgency, hesitancy, hematuria, flank pain, genital pain MUSCULOSKELETAL: Absent: myalgia, arthralgia, joint swelling SKIN: Absent: rash, itching, pallor HEMATOLOGIC/IMMUNOLOGIC: Absent: easy bleeding, easy bruising, lymphadenopathy, frequent infections ENDOCRINE: Absent: unexplained weight gain, unexplained weight loss, heat intolerance, cold intolerance NEUROLOGIC: Absent: headache, focal weakness or paresthesia, dizziness, unsteady gait, seizure, mental status changes, bladder or bowel incontinence. PSYCHIATRIC: Absent: anxiety, depression, suicidal or homicidal ideation, hallucinations <Negra,Latonya - Last Filed: 02/01/17 16:50> *Physical Exam - Vital Signs Last Vital Signs Temp Pulse Resp BP Pulse Ox 97.5 F L 110 H 18 120/60 98 02/01/17 08:26 02/01/17 08:26 02/01/17 08:26 02/01/17 08:26 02/01/17 08:26 - Physical Exam Comments: 02/01/17 11:13 GENERAL: Well developed, well nourished. Awake and alert. No acute distress. HEENT: Normocephalic, atraumatic. PERRLA, EOMI. No conjunctival pallor. Sclera are non- icteric. Moist mucous membranes. Oropharynx is clear. NECK: Supple. Full ROM. No JVD. Carotid pulses 2+ and symmetric, without bruits. No thyromegaly. No lymphadenopathy. CARDIOVASCULAR: Regular rate and rhythm. No murmurs, rubs, or gallops. Distal pulses are 2+ and symmetric. PULMONARY: Coarse breath sounds bilaterally, small crackles. No evidence of respiratory distress. No wheezing, rales or rhonchi. ABDOMINAL: Obese. Soft. Left mid and LLQ tenderness. Non-distended. No rebound or guarding. No organomegaly. Normoactive bowel sounds. MUSCULOSKELETAL: Normal range of motion at all joints. No bony deformities or tenderness. No CVA tenderness. EXTREMITIES: No cyanosis. No clubbing. No edema. No calf tenderness. SKIN: Warm and dry. Normal capillary refill. No rashes. No jaundice. NEUROLOGICAL: Alert, awake, appropriate. Cranial nerves 2-12 intact. No deficits to light touch and temperature in face, upper extremities and lower extremities. No motor deficits in the in face, upper extremities and lower extremities. Normoreflexic in the upper and lower extremities. Normal speech. Toes are down-going bilaterally. Gait is normal without ataxia. PSYCHIATRIC: Cooperative. Good eye contact. Appropriate mood and affect. <Latonya Omer - Last Filed: 02/01/17 16:50> - Vital Signs Last Vital Signs Temp Pulse Resp BP Pulse Ox 97.5 F L 110 H 18 120/60 98 02/01/17 08:26 02/01/17 08:26 02/01/17 08:26 02/01/17 08:26 02/01/17 08:26 <Christy Ackerman - Last Filed: 02/01/17 16:55> Heart Score/ECG Review #1 02/01/17 11:15 Sinus tachycardia at 110 bpm with premature atrial complexes Nonspecific T wave abnormality Abnormal ECG <Latonya Omer - Last Filed: 02/01/17 16:50> ED Treatment Course - LABORATORY CBC & Chemistry Diagram: 02/01/17 09:29 02/01/17 09:29 - ADDITIONAL ORDERS Additional order review: Laboratory Results 02/01/17 09:29 Sodium 134 L Potassium 4.1 Chloride 96 L Carbon Dioxide 26 Anion Gap 12 BUN 31 H D Creatinine 1.1 H D Creat Clearance w eGFR 49.25 Random Glucose 108 H D Calcium 9.8 Total Bilirubin 0.7 D AST 32 D ALT 54 D Alkaline Phosphatase 93 D Total Protein 8.6 H Albumin 4.1 02/01/17 09:29 RBC 4.67 MCV 90.6 MCHC 32.5 RDW 15.3 MPV 9.1 Neutrophils % 66.5 Lymphocytes % 25.2 D Monocytes % 7.1 Eosinophils % 0.9 Basophils % 0.3 - RADIOLOGY Radiograph Interpretation: 02/01/17 14:06 Chest X-Ray Impression: No evidence of pneumonia, atelectasis, congestive changes. Reported By: Du Golden MD 02/01/17 16:50 Abdomen/Pelvis CT Impression: Sigmoid diverticulosis without evidence of diverticulitis or acute pathology within the abdomen or pelvis. Please see discussion. Reported By: Sigifredo Rey MD <Latonya Omer - Last Filed: 02/01/17 16:50> - LABORATORY CBC & Chemistry Diagram: 02/01/17 09:29 02/01/17 09:29 - ADDITIONAL ORDERS Additional order review: Laboratory Results 02/01/17 09:29 Sodium 134 L Potassium 4.1 Chloride 96 L Carbon Dioxide 26 Anion Gap 12 BUN 31 H D Creatinine 1.1 H D Creat Clearance w eGFR 49.25 Random Glucose 108 H D Calcium 9.8 Total Bilirubin 0.7 D AST 32 D ALT 54 D Alkaline Phosphatase 93 D Total Protein 8.6 H Albumin 4.1 02/01/17 09:29 RBC 4.67 MCV 90.6 MCHC 32.5 RDW 15.3 MPV 9.1 Neutrophils % 66.5 Lymphocytes % 25.2 D Monocytes % 7.1 Eosinophils % 0.9 Basophils % 0.3 <Christy Ackerman - Last Filed: 02/01/17 16:55> Medical Decision Making - Medical Decision Making 02/01/17 11:00 71yo F with h/o copd, htn chf obesity here wtih llq pain. constipation. pt states started one week ago, last bm one week ago. no f/c no n/v. pain worse with eating, improves with lying down. no weight lose. surgical history hystercetomy. no urinary complaints. no other complaints. pain constant, no radiation. no other mod factors. on exam lung exam with bilat crackles. heart RRR no m/r/g. abd obese llq left mid quad ttp.no rebound no guard, differential; diverticulitis, colitis, constipation, uti pyelo, mass, pna. plan cxr ct a/p ua labs. reassess. <Christy Ackerman - Last Filed: 02/01/17 16:55> *DC/Admit/Observation/Transfer - Attestations Scribe Attestion: 02/01/17 11:15 Documentation prepared by Latonya Omer, acting as medical collections for Christy Ackerman MD <Latonya Omer - Last Filed: 02/01/17 16:50> - Discharge Dispostion Admit: No <Christy Ackerman - Last Filed: 02/01/17 16:55> Diagnosis at time of Disposition: UTI (urinary tract infection), Constipation - Discharge Dispostion Disposition: HOME - Prescriptions Prescriptions: Sulfamethoxazole/Trimethoprim [Bactrim Ds Tablet] 1 each PO BID #14 tablet - Referrals Referrals: Elizabeth Valente MD [Primary Care Provider] - - Patient Instructions Printed Discharge Instructions: Urinary Tract Infection, Constipation Additional Instructions: take bactrim twice daily x 7 days. follow up with your regular doctor. return for any fevers, vomiting or any concerns. you should increase the amount of fiber in your diet. follow up with gastroenterology. discuss with your doctor for referral.
[2017-02-01] MEDS ORDERED: SODIUM CHLORIDE 1,000 ML IV STA (11:03)
[2017-02-01 14:30] LABS: URINE APPEARANCE CLOUDY; URINE BILIRUBIN NEGATIVE (NEGATIVE); URINE COLOR AMBER; URINE GLUCOSE (UA) NEGATIVE (NEGATIVE); URINE KETONE NEGATIVE (NEGATIVE); URINE NITRITE POSITIVE (NEGATIVE); URINE UROBILINOGEN 2.0 E.U/dl E.U./dl (0.2-1.0)
[2017-02-01 14:34] LABS: URINE BLOOD 1+ (NEGATIVE); URINE LEUK ESTERASE 2+ (NEGATIVE); URINE PROTEIN 1+ (NEGATIVE)
[2017-02-01 15:37] LABS: GRANULAR CASTS 2 /lpf; URINE BACTERIA RARE /hpf (NONE SEEN); URINE HYALINE CAST 11 /lpf; URINE MUCUS RARE; URINE RBC 4 /hpf (0-3); URINE WBC 54 /hpf (3-5)
[2017-02-01] MEDS ORDERED: SULFAMETHOXAZOLE/TRIMETHOPRIM 800MG/160MG D.S. TABLET PO ONE (16:51)
[2017-02-01] MEDS ORDERED: SULFAMETHOXAZOLE/TRIMETHOPRIM 800MG/160MG D.S. TABLET ONE (17:02)
[2017-02-01 17:08] VITALS: BP 122/60; PULSE 89
--- NOTE | 2017-02-02 17:14 | EKG ---
Test Reason : Blood Pressure : / mmHG Vent. Rate : 110 BPM Atrial Rate : 110 BPM P-R Int : 130 ms QRS Dur : 082 ms QT Int : 350 ms P-R-T Axes : 057 019 077 degrees QTc Int : 473 ms SINUS TACHYCARDIA WITH PREMATURE ATRIAL COMPLEXES NONSPECIFIC T WAVE ABNORMALITY ABNORMAL ECG WHEN COMPARED WITH ECG OF 30-OCT-2016 10:26, PREMATURE ATRIAL COMPLEXES ARE NOW PRESENT T WAVE VARIATION Confirmed by ELISHA THOMPSON, CHRISTEN ([id number]) on 02/02/2017 5:14:03 PM Referred By: Confirmed By:CHRISTEN TELLO MD
== END 2017-02-01 17:08 | disposition home or self-care (01) ==
LOC: JER 08:18
PROC: 3E0337Z Introduction of Electrolytic and Water Balance Substance into Peripheral Vein, Percutaneous Approach (ICD-10-PCS; principal; 2017-02-01)
DX: N39.0 Urinary tract infection, site not specified (principal); K59.00 Constipation, unspecified; I50.9 Heart failure, unspecified; J44.9 Chronic obstructive pulmonary disease, unspecified; E66.01 Morbid (severe) obesity due to excess calories; Z68.41 Body mass index [BMI] 40.0-44.9, adult
CPT/HCPCS: 36415; 71020-TC; 74177-TC; 80053; 81003; 81015; 83690; 85025; 93005; 93010; 96360; 99283-25; Q9967

== ENCOUNTER 2017-12-18 07:13 | Emergency (ER) | payer OTHER ==
[2017-12-18 07:20] VITALS: BMI 43.0
--- NOTE | 2017-12-18 07:57 | PDOC ---
History of Present Illness - General History Source: Patient Exam Limitations: No Limitations - History of Present Illness Initial Comments: 12/18/17 09:17 The patient is a 72 year old female with a significant PMH of HTN and chronic bronchitis who presents to the emergency department with left sided neck redness , swelling, and pain beginning approximately yesterday. She reports the left side of her neck is hot to touch and the patients daughter notes that it has become slightly more red and swollen. The patient describes her neck pain as 10/ 10 in severity which is aggravated by coughing or by turning her head. She denies any history of neck swelling. The patient also reports an acute increase in her productive cough and shortness of breath over the past week and reports being treated with Azithromycin and a Prednisone taper to some relief. The patient states she had her dayne done by her daughter on Wednesday and notes they might have been too tight. The patient denies any recent travel. The patient denies chest pain, headache and dizziness. Denies fever, chills, nausea, vomit, diarrhea and constipation. Denies dysuria, frequency, urgency and hematuria. Allergies: NKA Past surgical history: Hysterectomy. Tonsillectomy. Lower back surgery. Social history: Current everyday smoker. No reported alcohol or drug use. PCP: Dr. Ballesteros <Garry Valladares - Last Filed: 12/18/17 15:45> - General History Source: Patient Exam Limitations: No Limitations <Lashonda Lambert - Last Filed: 12/20/17 09:59> - General Chief Complaint: Redness To Affected Area Stated Complaint: DIFFICULTY BREATHING Time Seen by Provider: 12/18/17 07:56 Past History <Garry Valladares - Last Filed: 12/18/17 15:45> - Past Medical History Anemia: No Asthma: No Cancer: No Cardiac Disorders: No CVA: No COPD: No CHF: No Dementia: No Diabetes: No GI Disorders: No Disorders: No HTN: Yes Hypercholesterolemia: No Liver Disease: No Seizures: No Thyroid Disease: No - Surgical History Abdominal Surgery: No Appendectomy: No Cardiac Surgery: No Cholecystectomy: No Lung Surgery: No Neurologic Surgery: No Orthopedic Surgery: Yes (lower back surgery 2010) - Suicide/Smoking/Psychosocial Hx Smoking History: Current every day smoker Have you smoked in the past 12 months: Yes Number of Cigarettes Smoked Daily: 40 Information on smoking cessation initiated: No 'Breaking Loose' booklet given: 05/17/17 Hx Alcohol Use: No Drug/Substance Use Hx: No Substance Use Type: None <Lashonda Lambert - Last Filed: 12/20/17 09:59> - Past Medical History Allergies/Adverse Reactions: Allergies Allergy/AdvReac Type Severity Reaction Status Date / Time No Known Allergies Allergy Verified 12/18/17 07:20 Home Medications: Ambulatory Orders Albuterol Sulfate Inhaler - [Ventolin Hfa Inhaler -] 1 - 2 inh PO QID 12/18/17 Azithromycin 500 mg PO DAILY 12/18/17 Losartan/Hydrochlorothiazide [Losartan-Hctz 100-25 mg Tab] 1 each PO DAILY 12/18 Multivit,Tx with Iron,Minerals [Taugelqm-N-Q with Minerals] 1 each PO DAILY Naproxen Sodium [Naproxen Sodium Cr] 375 mg PO DAILY 12/18/17 Potassium 99 mg PO DAILY 12/18/17 Prednisone 10 mg PO DAILY 12/18/17 Ranitidine [Zantac -] 150 mg PO DAILY 12/18/17 Review of Systems - Review of Systems Able to Perform ROS?: Yes Comments:: 12/18/17 09:17 GENERAL/CONSTITUTIONAL: No fever or chills. No weakness. HEAD, EYES, EARS, NOSE AND THROAT: (+) Left side neck edema. erythema, and pain. No change in vision. No ear pain or discharge. No sore throat. CARDIOVASCULAR: (+) Increased shortness of breath. No chest pain. RESPIRATORY: (+) Productive cough. No wheezing or hemoptysis. GASTROINTESTINAL: No nausea, vomiting, diarrhea or constipation. GENITOURINARY: No dysuria, frequency, or change in urination. MUSCULOSKELETAL: No joint or muscle swelling or pain. No neck or back pain. SKIN: No rash NEUROLOGIC: No headache, vertigo, loss of consciousness, or change in strength/ sensation. ENDOCRINE: No increased thirst. No abnormal weight change. HEMATOLOGIC/LYMPHATIC: No anemia, easy bleeding, or history of blood clots. ALLERGIC/IMMUNOLOGIC: No hives or skin allergy. <Garry Valladares - Last Filed: 12/18/17 15:45> *Physical Exam - Vital Signs Last Vital Signs Temp Pulse Resp BP Pulse Ox 98 F 118 H 20 206/107 97 12/18/17 07:15 12/18/17 07:15 12/18/17 07:15 12/18/17 07:15 12/18/17 07:15 - Physical Exam Comments: 12/18/17 09:29 GENERAL: Clear speech. Awake, alert, and fully oriented, in no acute distress HEAD: No signs of trauma EYES: PERRLA, EOMI, sclera anicteric, conjunctiva clear ENT: No drooling. Auricles normal inspection, hearing grossly normal, nares patent, oropharynx clear without exudates. Moist mucosa NECK: (+) Left neck swelling and erythema, tender to palpation. No crepitus. (+ ) Pain when turning head to left. Normal ROM, supple, no lymphadenopathy, JVD, or masses LUNGS: (+) Expiratory wheezing. Breath sounds equal, clear to auscultation bilaterally. No crackles.No stridor. HEART: Regular rate and rhythm, normal S1 and S2, no murmurs, rubs or gallops ABDOMEN: Soft, nontender, normoactive bowel sounds. No guarding, no rebound. No masses EXTREMITIES: Normal range of motion, no edema. No clubbing or cyanosis. No cords, erythema, or tenderness NEUROLOGICAL: AO x3. Cranial nerves II through XII grossly intact. Normal speech, normal gait SKIN: Warm, Dry, normal turgor, no rashes or lesions noted. <Garry Valladares - Last Filed: 12/18/17 15:45> - Vital Signs Last Vital Signs Temp Pulse Resp BP Pulse Ox 98 F 118 H 20 206/107 97 12/18/17 07:15 12/18/17 07:15 12/18/17 07:15 12/18/17 07:15 12/18/17 07:15 <Lashonda Lambert - Last Filed: 12/20/17 09:59> ED Treatment Course - LABORATORY CBC & Chemistry Diagram: 12/18/17 09:00 12/18/17 09:00 - ADDITIONAL ORDERS Additional order review: 12/18/17 09:00 RBC 4.17 MCV 90.2 MCHC 32.6 RDW 16.8 H MPV 9.6 Neutrophils % 81.1 D Lymphocytes % 11.4 D Monocytes % 7.1 Eosinophils % 0.1 D Basophils % 0.3 - Medications Given in the ED: ED Medications Discontinued Medications Generic Name Dose Route Start Last Admin Trade Name Christophe PRN Reason Stop Dose Admin Albuterol/Ipratropium 1 amp 12/18/17 08:25 12/18/17 09:01 Duoneb - NEB 12/18/17 08:26 1 amp ONCE ONE Administration Morphine Sulfate 4 mg 12/18/17 08:26 12/18/17 09:01 Morphine Injection - IVPUSH 12/18/17 08:27 4 mg ONCE ONE Administration <Garry Valladares - Last Filed: 12/18/17 15:45> - LABORATORY CBC & Chemistry Diagram: 12/18/17 09:00 12/18/17 09:00 <Lashonda Lambert - Last Filed: 12/20/17 09:59> Medical Decision Making - Medical Decision Making 12/18/17 12:[address] Chiu (ENT) regarding this patient. Spoke with [facility], who told us to have ENT come down and see the patient before possible transfer to the floor. 12/18/17 13:[address] Chiu again, who requested we call [facility] transfer to see if they will accept. 12/18/17 15:45 Dr. Chiu came down and evaluated pt. [facility] accepted transfer. <Garry Valladares - Last Filed: 12/18/17 15:45> - Critical Care Time Total Critical Care Time (minutes): 60 Critical Care Statement: The care of this patient involved high complexity decision making to prevent further life threatening deterioration of the patient 's condition and/or to evaluate & treat vital organ system(s) failure or risk of failure. - Medical Decision Making 12/18/17 09:48 Agustin is a 72-year-old female with a history of hypertension, recent diagnosis of bronchitis. Patient states she was in her usual state of health, noted left-sided neck pain and swelling. Over the course of the evening into this morning she noted that her neck pain and swelling worsened. No fevers or chills. Pain is so severe that she has difficulty moving her neck. No prior episodes like this. No trauma to the area. Patient is currently being treated for bronchitis with azithromycin, steroids. On examination: Patient is awake and alert, oriented 3. Patient does have a cough, but speaking in clear complete sentences. Heart is regular rate and rhythm. Lungs are significant for expiratory wheezing throughout. No abdominal tenderness. Left neck is swollen, tender to palpation. Erythematous. No masses palpated. No oral lesions noted. No lesions or masses noted beneath the tongue Differential diagnosis includes but is not limited to: Neck abscess, cellulitis, inflamed lymph node, retropharyngeal abscess, parotitis, Ludwigs angina Will do: Labs nebs Chest x-ray CT neck IV pain medication Duo nebs Laboratory Tests 12/18/17 12/18/17 09:00 09:00 WBC 19.0 H D Hgb 12.3 D Hct 37.6 Plt Count 239 D Sodium 140 Potassium 4.0 Carbon Dioxide 28 BUN 20 H Creatinine 0.8 Random Glucose 111 H 12/18/17 09:52 Patient is currently at CT now. Patient's white count noted to be 19. Patient's has been on steroids for the past 3 days Leukocytosis possibly related to steroids versus underlying infection 12/18/17 11:[address] evaluation: Inflammed cervical mass noted Pending Official read Unasyn ordered Vancomycin ordered Call placed to He states he is having difficulty determining the source of this patient's inflammation 12/18/17 11:39 Official read: Prominent diffuse subcutaneous edema is noted along the left lateral half of the neck. There is also subcutaneous edema along the submental region bilaterally. Diffuse edematous swelling of the left sternocleidomastoid muscle is seen along the length of the neck, principally within the upper and middle thirds. There is also demonstrate swelling of the left posterior paraspinal musculature within the upper and middle thirds of the neck. Small amount of fluid is seen within the left parapharyngeal space at the level of the oropharynx. Thickening of the left platysma muscle is noted. Possible mild swelling of the superficial lobe of left parotid glands is seen. No ductal dilatation or intraductal calculus is seen. No abscess is visualized. The pre-vertebral retropharyngeal soft tissue planes appear unremarkable thickness. An approximate 1.5 and 1 cm nonspecific mildly hyperdense focus is seen within the right posterior lateral aspect of the supra glottic larynx. Enlargement of the left thyroid measuring 5 cm in diameter. Small amounts of fluids/mucosal thickening is noted along the posterior wall of the left maxillary sinus. Call placed to Dr Chiu 12/18/17 12:[address] Chiu She believes this to be due to poor dentition Recommends transfer Case reviewed with Dr Hernandez He initially accepted pt for transfer He called back stating that the patient must be seen by out ENT prior to transfer Two calls made to service I have reviewed this with Dr Chiu She states she will come in to see this patient I have re assessed this patients teeth No tenderness with palpation of the gums, no swelling, pt does have poor dentition 12/18/17 13:14 She called me back States that the patient should be transferred to [facility] Call placed to [facility] Awaiting call back from ENT 12/18/17 13:[address] Chiu I still have not received a call back from [facility] 12/18/17 15:16 Scoped in the ER by Dr Chiu Airway in tact Still high potential for this to be odontogenic Given no OMFS here Transfer most appropriate Clinical Impression: neck space cellulitis/infection, initial presentation <Lashonda Lambert - Last Filed: 12/20/17 09:59> *DC/Admit/Observation/Transfer - Attestations Scribe Attestion: 12/18/17 09:18 Documentation prepared by Garry Valladares, acting as medical screener for Lashonda Lambert MD. <Garry Valladares - Last Filed: 12/18/17 15:45> - Discharge Dispostion Admit: No - Transfer to Acute Care Facility Receiving Facility: [facility]. Accepting Physician:: Dr. Saskia Solo (ENT) <Lashonda Lambert - Last Filed: 12/20/17 09:59> Diagnosis at time of Disposition: Cellulitis of neck - Discharge Dispostion Disposition: TRANSFER ACUTE CARE/OTHER HOSP Condition at time of disposition: Fair - Referrals Referrals: Rae Ballesteros FNP [Primary Care Provider] -
[2017-12-18] MEDS ORDERED: ALBUTEROL SO4 2.5/IPRATROPIUM 0.5 INH SOL 3 ML VIAL.NEB. NEB ONE ×5 (08:25→15:15)
[2017-12-18] MEDS ORDERED: morphine CARPU-JECT 4 MG/1 ML DISP.SYRIN IVPUSH ONE ×2 (08:26→11:08)
[2017-12-18] MEDS ORDERED: MORPHINE SULFATE 10 MG/1 ML *VIAL ONE ×2 (08:43→11:10)
[2017-12-18 09:05] LABS: BASO % 0.3 % (0-2.0); EOS % 0.1 % (0-4.5); HEMATOCRIT 37.6 % (32.4-45.2); HEMOGLOBIN 12.3 GM/dL (10.7-15.3); LYMPH % 11.4 % (8-40); MCH 29.4 pg (25.7-33.7); MCHC 32.6 g/dl (32.0-36.0); MEAN CELL VOLUME 90.2 fl (80-96); MEAN PLT VOLUME 9.6 fl (7.5-11.1); MONO % 7.1 % (3.8-10.2); NEUT % 81.1 % (42.8-82.8); PLATELET COUNT 239 K/MM3 (134-434); RBC 4.17 M/mm3 (3.60-5.2); RDW 16.8 % (11.6-15.6)
[2017-12-18 09:32] LABS: ANION GAP 10 (8-16); BILIRUBIN,TOTAL 0.7 mg/dL (0.2-1.0); BLOOD UREA NITROGEN 20 mg/dL (7-18); CALCIUM 9.6 mg/dL (8.5-10.1); CHLORIDE 102 mmol/L (98-107); CO2 28 mmol/L (21-32); CREATININE 0.8 mg/dL (0.55-1.02); GLUCOSE,RANDOM 111 mg/dL (74-106); SGOT/AST 23 U/L (15-37); SGPT/ALT 21 U/L (12-78); SODIUM 140 mmol/L (136-145); TOT PROT 7.8 g/dl (6.4-8.2)
[2017-12-18 09:33] LABS: ALK PHOS 70 U/L (45-117)
[2017-12-18] MEDS ORDERED: ACETAMINOPHEN INJECTION 100 ML IVPB ONE (10:36)
[2017-12-18] MEDS ORDERED: ACETAMINOPHEN 1000 MG/100 ML VIAL (NON FORMULARY) IVPB ONE (11:03)
[2017-12-18] MEDS ORDERED: HYDROmorphone HCL CARPU-JECT 1 MG/1 ML DISP.SYRIN IVPUSH ONE (11:03)
[2017-12-18] MEDS ORDERED: SODIUM CHLORIDE 1,000 ML IV STA (11:03)
[2017-12-18] MEDS ORDERED: AMPICILLIN NA/SULBACTAM NA 3 GM in SODIUM CHLORIDE 100 ML IVPB ONE (11:04)
[2017-12-18] MEDS ORDERED: VANCOMYCIN 1,000 MG in DEXTROSE 5%-WATER - 250 ML IVPB ONE (11:05)
[2017-12-18] MEDS ORDERED: VANCOMYCIN 1 GRAM (PRE-DOCKED) 1,000 MG/250 ML BAG IVPB ONE ×2 (12:56→13:00)
--- NOTE | 2017-12-18 16:01 | CONSULT ---
Consult - text type - Consultation Consultation Note: Neck swelling Patient is 72 y/o female who reports progressive left neck pain and swelling which radiates underneath her chin over the past 3 days. She was seen earlier this week by her PMD for wheezing and was started on prednisone and a zpak for bronchitis. She reports since this morning her neck has been very painful. She denies any difficultly breathing (other than wheezing), dysphagia, or odynophagia. She denies any difficultly opening her mouth widely. She reports that she has poor dentition and "old teeth" but denies any tooth pain. She reports that she had her hair done on Wednesday and the dayne felt tight. She reports that since she has been in the ER the neck has worsened. Meds: lostartan, prednisone, recently given azithromycin, potassium PMH: HTN, bronchitis PSH: nC allergies: denies SH: +smoker FH: NC PE: awake alert, uncomfortable and audible wheezing t 100.0, PULSE 118-125, RR 16, BP 155/96 o2 sat 99% EOMI PERLLA EArs auricles wnl. EAcs wnl TMs intact Oc/OP Fom, tongue mucosa wnl. There are necrotic appearing left mandibular molar teeth. Neck: left neck is erythematous and indurated from the left posterior neck extending anteriorly. There is diffuse induration. There is no fluctuance. DFL: nasal cavity: septum is midline, mucosa- very mild edema. there is scant mucopus in the OMCs bilaterally. Npx wnl. Hypophaynx- epglottis, pharyngeal miller, arytenoids wnl. Larynx: VFs are mobile bilaterally. Airways is widely patent. area of calcification on the right noted on CT scan appearred on DFL wnl. labs: WBC 19 glc 111, BUN 20 CT scan: [facility] Name: [facility] Phys: Lashonda Lambert MD : 1945 Age: 72 Sex: F [facility] Acct: [id number] Loc: [address] Exam Date: 12/18/17 Status: [place] [address] Unit Number: [id number] EXAM#: TYPE/EXAM: RESULT: [id number] CT/SOFT TISSUE NECK CT WITH CONTR Soft tissue neck CT (with contrast) Clinical information: left neck swelling, erythema Multiplanar imaging was performed following the intravenous administration of nonionic contrast. Prominent diffuse subcutaneous edema is noted along the left lateral half of the neck. There is also subcutaneous edema along the submental region bilaterally. Diffuse edematous swelling of the left sternocleidomastoid mastoid muscle is seen along the length of the neck principally within the upper and middle thirds. There is also demonstrate swelling of the left posterior paraspinal musculature within the upper and middle thirds of the neck. A small amount of fluid is seen within the left parapharyngeal space at the level of the oropharynx. Thickening of the left platysma muscle is noted. Possible mild swelling of the superficial lobe of left parotid gland is seen. No ductal dilatation or intraductal calculus is visualized. The submandibular glands demonstrate no discrete abnormality. No abscess is visualized. The prevertebral retropharyngeal soft tissue planes appear unremarkable in thickness. The carotid sheath structures appear symmetric. No vascular thrombosis is identified. The visualized osseous structures demonstrate no gross CT evidence of acute pathology. No soft tissue air/gas accumulation is noted. An approximately 1.5 x 1 cm nonspecific mildly hyperdense focus is seen within the right posterolateral aspect of the supraglottic larynx (transaxial image 43). There is enlargement of the left thyroid currently measuring 5 cm in diameter, previously 4 cm at the time of a cervical spine CT study of 11/03/2010. There is resultant mild contralateral tracheal displacement. A small amount of fluid/mucosal thickening is noted along the posterior wall of the left maxillary sinus. 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 IMPRESSION: Extensive inflammatory changes are seen involving the left neck as discussed above. The exact site of origin of this finding is uncertain on the basis of this exam. An approximately 1.5 x 1 cm nonspecific mildly hyperdense focus is seen within the right posterior lateral aspect of the supraglottic larynx. When the patient's clinical condition permits direct visualization is suggested. 1 Signed [facility] Name: [facility] Phys: Lashonda Lambert MD : 1945 Age: 72 Sex: F [facility] Acct: [id number] Loc: [facility] [facility] Exam Date: 12/18/17 Status: [id number] [id number] Unit Number: [id number] Reported By: Laz Rogers MD 12/18/171138 Lashonda Lambert Technologist: Jessee Khan Transcribed Date/Time: 12/18/171138 Orthopedic Technician: Laz Rogers Printed Date/Time: 12/18/171138 By: WILVER LOPEZ 2 A?P: 72 y/o female with 1. left neck cellulitis- r/o dental origin. Calcification in the right hypopharynx seen demonstrated on CT scan but no lesion/mass seen on DFL. Previously given unasyn and was worsening after. currently getting vanco. Upper airway widely patent.Patient to transfer to [facility] for further workup and management discussed with ENT- Gale Hoang. Upper airway widely patent. 2.Sinusitis- currently getting vanco and unasyn. saline irrigations. 2. Bronchitis and wheezing on prednisone. Patient given nebulizers in ER. Management as per medicine.
[2017-12-18 16:43] VITALS: BP 156/78; PULSE 115; TEMP 99.3
[2017-12-18] MEDS ORDERED: morphine SULFATE 4 MG/ML VIAL ONE (17:05)
[2017-12-18] MEDS ORDERED: morphine CARPU-JECT 2 MG/1 ML DISP.SYRIN IVPUSH ONE (17:14)
== END 2017-12-18 17:15 | disposition short-term general hospital (02) ==
LOC: JER 07:13
PROC: 3E0F7GC Introduction of Other Therapeutic Substance into Respiratory Tract, Via Natural or Artificial Opening (ICD-10-PCS; principal; 2017-12-18)
PROC: 3E0F7GC Introduction of Other Therapeutic Substance into Respiratory Tract, Via Natural or Artificial Opening (ICD-10-PCS; 2017-12-18)
PROC: 3E0F7GC Introduction of Other Therapeutic Substance into Respiratory Tract, Via Natural or Artificial Opening (ICD-10-PCS; 2017-12-18)
PROC: 3E03329 Introduction of Other Anti-infective into Peripheral Vein, Percutaneous Approach (ICD-10-PCS; 2017-12-18)
PROC: 3E03329 Introduction of Other Anti-infective into Peripheral Vein, Percutaneous Approach (ICD-10-PCS; 2017-12-18)
PROC: 3E033NZ Introduction of Analgesics, Hypnotics, Sedatives into Peripheral Vein, Percutaneous Approach (ICD-10-PCS; 2017-12-18)
PROC: 3E033NZ Introduction of Analgesics, Hypnotics, Sedatives into Peripheral Vein, Percutaneous Approach (ICD-10-PCS; 2017-12-18)
PROC: 3E033NZ Introduction of Analgesics, Hypnotics, Sedatives into Peripheral Vein, Percutaneous Approach (ICD-10-PCS; 2017-12-18)
PROC: 3E033NZ Introduction of Analgesics, Hypnotics, Sedatives into Peripheral Vein, Percutaneous Approach (ICD-10-PCS; 2017-12-18)
PROC: 3E0337Z Introduction of Electrolytic and Water Balance Substance into Peripheral Vein, Percutaneous Approach (ICD-10-PCS; 2017-12-18)
PROC: 3E03329 Introduction of Other Anti-infective into Peripheral Vein, Percutaneous Approach (ICD-10-PCS; 2017-12-18)
PROC: 3E03329 Introduction of Other Anti-infective into Peripheral Vein, Percutaneous Approach (ICD-10-PCS; 2017-12-18)
PROC: 0CJS8ZZ Inspection of Larynx, Via Natural or Artificial Opening Endoscopic (ICD-10-PCS; 2017-12-18)
DX: L03.221 Cellulitis of neck (principal); J04.0 Acute laryngitis; R06.2 Wheezing; J32.8 Other chronic sinusitis; F17.210 Nicotine dependence, cigarettes, uncomplicated; I10 Essential (primary) hypertension
CPT/HCPCS: 31525; 36415; 70491-TC; 80053; 85025; 87040; 94640; 96361; 96365; 96367; 96375; 99285-25; J0131; J7030